=== PATIENT | male | born 1985 | race Caucasian/White ===

== ENCOUNTER 2020-05-24 14:40 | Emergency (ER) | payer BC ==
[~2020-05-24] VITALS: Ht 172.7 cm; Wt 79.4 kg
[2020-05-24] MEDS ORDERED: HYDROCODON-ACE1 EAC7 PO (15:51)
[2020-05-24 16:03] VITALS: BP 132/88
== END 2020-05-24 16:03 | disposition home or self-care (01) ==
LOC: M.ERS 14:40
DX: S20.211A Contusion of right front wall of thorax, initial encounter (principal); W10.8XXA Fall (on) (from) other stairs and steps, initial encounter; Y93.89 Activity, other specified; Y92.89 Other specified places as the place of occurrence of the external cause; Y99.8 Other external cause status